=== PATIENT | male | born 1990 | race African-American/Black ===

== ENCOUNTER 2016-12-08 19:57 | Inpatient (IN) | payer OTHER ==
[~2016-12-08] VITALS: Ht 165.1 cm; Wt 57.7 kg
[2016-12-08 20:01] VITALS: BP 144/71; PULSE 83; RESP 14; TEMP 98.6; O2SAT 99
[2016-12-08 22:41] VITALS: BP 133/70; PULSE 78; RESP 14; O2SAT 97
[2016-12-08 23:38] LABS: AMPHETAMINE, URINE NEG (NEG); BARBITURATES, URINE NEG (NEG); COCAINE, URINE NEG (NEG)
[2016-12-08 23:40] LABS: AUTOMATED NEUTROPHIL # 2.1 TH/MM3 (1.8-7.7); BASOPHIL # 0.1 TH/MM3 (0-0.2); BASOPHIL % 2.1 % (0.0-2.0); EOSINOPHIL # 0.3 TH/MM3 (0-0.4); EOSINOPHIL % 5.7 % (0.0-4.0); HEMATOCRIT 39.7 % (39.0-51.0); HEMO FLAGS DIFF FINAL; LYMPH % 44.8 % (9.0-44.0); LYMPHOCYTE # 2.5 TH/MM3 (1.0-4.8); MEAN CELL VOLUME 87.4 FL (80.0-100.0); MEAN CORPUSCULAR HEMOGLOBIN 30.5 PG (27.0-34.0); MEAN CORPUSCULAR HGB CONC 34.9 % (32.0-36.0); NEUT % 36.4 % (16.0-70.0); PLATELET COUNT 297 TH/MM3 (150-450); RED BLOOD COUNT 4.55 MIL/MM3 (4.50-5.90); RED CELL DISTRIBUTION WIDTH 13.5 % (11.6-17.2); WHITE BLOOD COUNT 5.6 TH/MM3 (4.0-11.0)
[2016-12-09 00:02] LABS: ALT (GPT) 22 U/L (12-78); ANION GAP 6 MEQ/L (5-15); AST (GOT) 27 U/L (15-37); BICARBONATE 28.2 MEQ/L (21.0-32.0); BLOOD UREA NITROGEN 15 MG/DL (7-18); CHLORIDE 105 MEQ/L (98-107); GLOMERULAR FILTRATION RATE 105 ML/MIN (>89); POTASSIUM 4.1 MEQ/L (3.5-5.1); SODIUM (NA) 139 MEQ/L (136-145)
[2016-12-09 00:08] LABS: ALKALINE PHOSPHATASE 86 U/L (45-117); TOTAL BILIRUBIN ADULT 0.4 MG/DL (0.2-1.0)
--- NOTE | 2016-12-09 00:15 | PD ---
HPI Chief Complaint: Medical Clearance Time Seen by Provider: 22:13 Travel History International Travel<30 days: No Contact w/Intl Traveler<30days: No Traveled to known affect area: No History of Present Illness HPI 26 years old male requesting medical clearance for [facility]. Patient requesting psychiatric evaluation. Patient states that he has psychiatric history however unable to tell me the diagnosis is. Patient denies any headache. Patient denies any chest pain or shortness of breath. Patient denies abdominal pain. Patient denies any focal weakness or numbness of extremity. Patient denies any history alcohol or drug abuse. Patient states that has history of asthma. PFSH Past Medical History Depression: Yes (Denies diagnosis) Hypertension: Yes Respiratory: Yes (ASTHMA) Past Surgical History Surgical History: No Previous Surgery Social History Alcohol Use: No Tobacco Use: No Substance Use: No Allergies-Medications (Allergen,Severity, Reaction): Coded Allergies: No Known Allergies (Unverified , 12/08/16) Reported Meds & Prescriptions Reported Meds & Active Scripts Active No Active Prescriptions or Reported Medications Review of Systems General / Constitutional: No: Fever Eyes: No: Visual changes HENT: No: Headaches Cardiovascular: No: Chest Pain or Discomfort Respiratory: No: Shortness of Breath Gastrointestinal: No: Abdominal Pain Genitourinary: No: Dysuria Musculoskeletal: No: Pain Skin: No Rash Neurologic: No: Weakness Psychiatric: No: Depression Endocrine: No: Polydipsia Hematologic/Lymphatic: No: Easy Bruising Physical Exam Narrative GENERAL: Well-nourished, well-developed patient. SKIN: Focused skin assessment warm/dry. HEAD: Normocephalic. EYES: No scleral icterus. No injection or drainage. NECK: Supple, trachea midline. No JVD or lymphadenopathy. CARDIOVASCULAR: Regular rate and rhythm without murmurs, gallops, or rubs. RESPIRATORY: Breath sounds equal bilaterally. No accessory muscle use. GASTROINTESTINAL: Abdomen soft, non-tender, nondistended. MUSCULOSKELETAL: No cyanosis, or edema. BACK: Nontender without obvious deformity. No CVA tenderness. Neurologic exam normal. Data Data Last Documented VS Vital Signs Date Time Temp Pulse Resp B/P Pulse Ox O2 Delivery O2 Flow Rate FiO2 12/08/16 22:41 78 14 133/70 97 12/08/16 20:01 98.6 Room Air Orders Complete Blood Count With Diff (12/08/16 22:18) Comprehensive Metabolic Panel (12/08/16 22:18) Psych Screen (12/08/16 22:18) Drug Screen, Random Urine (12/08/16 22:18) Alcohol (Ethanol) (12/08/16 22:18) Labs Laboratory Tests Test 12/08/16 22:00 White Blood Count 5.6 TH/MM3 Red Blood Count 4.55 MIL/MM3 Hemoglobin 13.9 GM/DL Hematocrit 39.7 % Mean Corpuscular Volume 87.4 FL Mean Corpuscular Hemoglobin 30.5 PG Mean Corpuscular Hemoglobin 34.9 % Concent Red Cell Distribution Width 13.5 % Platelet Count 297 TH/MM3 Mean Platelet Volume 8.3 FL Neutrophils (%) (Auto) 36.4 % Lymphocytes (%) (Auto) 44.8 % Monocytes (%) (Auto) 11.0 % Eosinophils (%) (Auto) 5.7 % Basophils (%) (Auto) 2.1 % Neutrophils # (Auto) 2.1 TH/MM3 Lymphocytes # (Auto) 2.5 TH/MM3 Monocytes # (Auto) 0.6 TH/MM3 Eosinophils # (Auto) 0.3 TH/MM3 Basophils # (Auto) 0.1 TH/MM3 CBC Comment DIFF FINAL Differential Comment Urine Opiates Screen NEG Urine Barbiturates Screen NEG Urine Amphetamines Screen NEG Urine Benzodiazepines Screen NEG Urine Cocaine Screen NEG Urine Cannabinoids Screen NEG Sodium Level 139 MEQ/L Potassium Level 4.1 MEQ/L Chloride Level 105 MEQ/L Carbon Dioxide Level 28.2 MEQ/L Anion Gap 6 MEQ/L Blood Urea Nitrogen 15 MG/DL Creatinine 1.04 MG/DL Estimat Glomerular Filtration 105 ML/MIN Rate Random Glucose 72 MG/DL Calcium Level 9.0 MG/DL Total Bilirubin 0.4 MG/DL Aspartate Amino Transf 27 U/L (AST/SGOT) Alanine Aminotransferase 22 U/L (ALT/SGPT) Alkaline Phosphatase 86 U/L Total Protein 7.6 GM/DL Albumin 3.9 GM/DL Ethyl Alcohol Level 7 MG/DL [facility] Medical Decision Making Medical Screen Exam Complete: Yes Emergency Medical Condition: Yes Interpretation(s) 12:15 AM. CBC within normal limit. CMP within normal limit. Alcohol negative. Urine drug screen negative. Differential Diagnosis Differential diagnosis including adjustment disorder, substance abuse, psychosis , schizophrenia. Narrative Course 26 years old male requesting psychiatric evaluation. 12:15 AM. Patient is medically cleared for psychiatric evaluation and disposition. Scripts No Active Prescriptions or Reported Meds Talha Devine MD Dec 09, 2016 00:15
[2016-12-09 10:27] VITALS: BP 114/60; PULSE 60; RESP 14; O2SAT 98
[2016-12-09] MEDS ORDERED: LORazepam 2 MG/ML VIAL IM PRN (15:00)
[2016-12-09] MEDS ORDERED: ALUMINUM/MAGNESIUM/SIMETH 30 ML CUP PO PRN (15:00)
[2016-12-09] MEDS ORDERED: ACETAMINOPHEN 325 MG TAB PO PRN (15:00)
[2016-12-09] MEDS ORDERED: diphenhydrAMINE HCL 50 MG/ML VIAL IM PRN (15:00)
[2016-12-09] MEDS ORDERED: MAGNESIUM HYDROXIDE SUSP 30 ML CUP PO PRN (15:00)
[2016-12-09] MEDS ORDERED: OLANZapine ODT 5 MG TAB PO ONE (15:00)
[2016-12-09] MEDS ORDERED: diphenhydrAMINE HCL 50 MG CAP PO PRN (15:00)
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
[2016-12-09 15:28] VITALS: BP 122/59; PULSE 61; RESP 18; TEMP 99.1; O2SAT 98
[2016-12-09 17:10] VITALS: BP 131/80; PULSE 64; RESP 17; TEMP 98.3; O2SAT 99
[2016-12-10 02:25] VITALS: BP 109/64; PULSE 46; RESP 18; TEMP 98; O2SAT 99
[2016-12-10 05:04] VITALS: BP 99/58; PULSE 49; RESP 18; TEMP 97.8; O2SAT 97
[2016-12-10 05:30] VITALS: BP 104/60; PULSE 50; RESP 18
--- NOTE | 2016-12-10 09:40 | EKG ---
Date Performed: 12/10/2016 Time Performed: 02:12:01 PTAGE: 26 years EKG: ECTOPIC ATRIAL BRADYCARDIA ST ELEVATION, PROBABLY EARLY REPOLARIZATION ABNORMAL RHYTHM ECG NO PREVIOUS TRACING DOCTOR: Freedom Bright Interpretating Date/Time 12/10/2016 09:39:16
[2016-12-10 10:26] LABS: ANION GAP 5 MEQ/L (5-15); BICARBONATE 29.8 MEQ/L (21.0-32.0); BLOOD UREA NITROGEN 12 MG/DL (7-18); CHLORIDE 106 MEQ/L (98-107); GLOMERULAR FILTRATION RATE 93 ML/MIN (>89); HDL CHOLESTEROL 53.8 MG/DL (40.0-60.0); LDL CHOLESTEROL 84 MG/DL (0-99); POTASSIUM 3.7 MEQ/L (3.5-5.1); SODIUM (NA) 141 MEQ/L (136-145)
[2016-12-10 11:53] LABS: HEMOGLOBIN A1b 0.8 %; HEMOGLOBIN Ao 85.8 %; HEMOGLOBIN LA1C 1.7 %; HEMOGLOBIN P3 3.5 %
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
[2016-12-10 19:18] VITALS: BP 122/71; PULSE 65; RESP 16; TEMP 97.8; O2SAT 100
[2016-12-10] MEDS: ARIPiprazole 5 MG TAB PO SCH (20:22)
[2016-12-11 05:39] VITALS: BP 111/61; PULSE 75; RESP 17; TEMP 97.6; O2SAT 100
[2016-12-11 18:23] VITALS: BP 122/80; PULSE 73; RESP 18; TEMP 98.4; O2SAT 98
--- NOTE | 2016-12-11 21:04 | HHI.PYPN ---
Subjective Remarks Pt seen and discussed with staff. He is compliant wiht medication and tolerating without side effects. He reports seeing shadows and balls of light. He appears internally stimulated. No SI/HI. No agitation. Objective Alert: Yes [place]: Person, Place Mood: Calm Affect: Restricted Memory Intact: Immediate, Recent, Remote Hallucinations: Visual, Other (internally stimulation) Delusions: Yes Delusion Type: Paranoid Suicidal: Ideation (denies) Homicidal: Ideation (denies) Insight/Judgment poor Vitals/IOs Vital Signs Date Time Temp Pulse Resp B/P Pulse Ox O2 Delivery O2 Flow Rate FiO2 12/11/16 18:23 98.4 73 18 122/80 98 12/09/16 15:28 Room Air Assessment & Plan Problem List: (1) Schizophrenia, paranoid, chronic ICD Code: F20.0 Assessment & Plan Continue current tx plan. Estimated LOS: days Justification for Cont. Inpt. impairments in reality construction Elise Gao MD Dec 11, 2016 21:04
[2016-12-11] MEDS: ARIPiprazole 5 MG TAB PO SCH (21:24)
[2016-12-12 05:38] VITALS: BP 104/64; PULSE 61; RESP 16; TEMP 98.2; O2SAT 98
[2016-12-12] MEDS: ARIPiprazole 5 MG TAB PO SCH (21:00)
--- NOTE | 2016-12-12 22:36 | HHI.PYPN ---
Subjective Remarks Pt seen and discussed with staff. He is tolerating medications without side effects. Hallucinations are diminishing. No agitation. He is more present in milieu but is still isolative and guarded. Prominent negative symptoms. Objective Alert: Yes [place]: Person, Place Mood: Calm Affect: Restricted Memory Intact: Immediate, Recent, Remote Hallucinations: Visual, Other (internally stimulation) Delusions: Yes Delusion Type: Paranoid Suicidal: Ideation (denies) Homicidal: Ideation (denies) Insight/Judgment limited Vitals/IOs Vital Signs Date Time Temp Pulse Resp B/P Pulse Ox O2 Delivery O2 Flow Rate FiO2 12/12/16 05:38 98.2 61 16 104/64 98 12/09/16 15:28 Room Air Assessment & Plan Problem List: (1) Schizophrenia, paranoid, chronic ICD Code: F20.0 Assessment & Plan Continue current tx plan. Estimated LOS: days Justification for Cont. Inpt. impairments in reality construction Elise Gao MD Dec 12, 2016 22:36
[2016-12-13 05:53] VITALS: BP 108/57; PULSE 67; RESP 18; TEMP 98.4; O2SAT 98
[2016-12-13 20:25] VITALS: BP 114/81; PULSE 77; RESP 18; TEMP 98.1; O2SAT 98
[2016-12-13] MEDS: traZODone HCL 50 MG TAB PO PRN (21:23)
[2016-12-13] MEDS: ARIPiprazole 5 MG TAB PO SCH (21:23)
[2016-12-14 06:41] VITALS: BP 110/56; PULSE 61; RESP 18; TEMP 98.1; O2SAT 97
--- NOTE | 2016-12-14 10:55 | HHI.PYPN ---
Subjective Remarks This is a psychiatric progress note for December 13, 2016. Patient remains flat and blunted in his affect and interactions. He demonstrates impaired ability to relate to others. However, he is tolerating the Abilify. It continues to need time to work as the patient remains paranoid with auditory hallucinations. Review of Systems ROS Limitations: Clinical Condition Objective Alert: Yes [place]: Person, Place Mood: Calm Affect: Restricted Memory Intact: Immediate, Recent, Remote Hallucinations: Visual, Other (internally stimulation) Delusions: Yes Delusion Type: Paranoid Suicidal: Ideation (denies) Homicidal: Ideation (denies) Insight/Judgment Impaired. Vitals/IOs Vital Signs Date Time Temp Pulse Resp B/P Pulse Ox O2 Delivery O2 Flow Rate FiO2 12/14/16 06:41 98.1 61 18 110/56 97 Assessment & Plan Problem List: (1) Schizophrenia, paranoid, chronic ICD Code: F20.0 Assessment & Plan Estimated LOS: 3 days this physician wants to give the patient more time on his Abilify and make sure he has reasonable follow up as he has limited or no family support at this point. Justification for Cont. Inpt. Patient continues to report auditory hallucinations, paranoid thinking and an inability to care for self. Esteban Blake MD Dec 14, 2016 10:55
[2016-12-14 19:00] VITALS: BP 128/63; PULSE 67; RESP 18; TEMP 98.4; O2SAT 97
[2016-12-14] MEDS: traZODone HCL 50 MG TAB PO PRN (21:31)
[2016-12-14] MEDS: ARIPiprazole 5 MG TAB PO SCH (21:31)
[2016-12-15 06:27] VITALS: BP 126/66; PULSE 78; RESP 18; TEMP 97.9; O2SAT 96
--- NOTE | 2016-12-15 09:56 | HHI.PYPN ---
Subjective Remarks Remains psychotic with paranoid delusions. Does not feel he can go home to his parents because they are imposters. Has very limited insight and impaired judgment. He is currently taking his medicines as prescribed. However he remains confused and unable to care for himself. Review of Systems ROS Limitations: Clinical Condition Objective Alert: Yes [place]: Person, Place Mood: Calm Affect: Restricted Memory Intact: Immediate, Recent, Remote Hallucinations: Visual, Other (internally stimulation) Delusions: Yes Delusion Type: Paranoid Suicidal: Ideation (denies) Homicidal: Ideation (denies) Insight/Judgment Impaired Vitals/IOs Vital Signs Date Time Temp Pulse Resp B/P Pulse Ox O2 Delivery O2 Flow Rate FiO2 12/15/16 06:27 97.9 78 18 126/66 96 Assessment & Plan Problem List: (1) Schizophrenia, paranoid, chronic ICD Code: F20.0 Assessment & Plan Estimated LOS: 3 days patient continues to demonstrate paranoid ideation and paranoid delusions. He is confused and requires prompting for hygiene, meals, getting dressed, etc. He is taking direction better and this physician hopes that with more time on his medication, he will continue to improve. We will discuss placement options with him and his family. Justification for Cont. Inpt. Remains psychotic and unable to care for self. Esteban Blake MD Dec 15, 2016 09:56
[2016-12-15 18:04] VITALS: BP 133/64; PULSE 97; RESP 20; TEMP 98.2; O2SAT 96
[2016-12-15] MEDS: ARIPiprazole 5 MG TAB PO SCH (20:32)
[2016-12-15] MEDS: traZODone HCL 50 MG TAB PO PRN (20:32)
[2016-12-16 06:09] VITALS: BP 116/67; PULSE 74; RESP 18; TEMP 98.1; O2SAT 96
--- NOTE | 2016-12-16 15:34 | HHI.PYPN ---
Subjective Remarks Remains paranoid with significantly blunted affect but otherwise cooperative with staff and does not appear to be dangerous to self or others. Tolerating his dose of Abilify rather well. No significant side effects. Review of Systems ROS Limitations: Clinical Condition Objective Alert: Yes [place]: Person, Place Mood: Calm Affect: Restricted Memory Intact: Immediate, Recent, Remote Hallucinations: Visual, Other (internally stimulation) Delusions: Yes Delusion Type: Paranoid Suicidal: Ideation (denies) Homicidal: Ideation (denies) Insight/Judgment Impaired but improved Vitals/IOs Vital Signs Date Time Temp Pulse Resp B/P Pulse Ox O2 Delivery O2 Flow Rate FiO2 12/16/16 06:09 98.1 74 18 116/67 96 Assessment & Plan Problem List: (1) Schizophrenia, paranoid, chronic ICD Code: F20.0 Assessment & Plan Estimated LOS: 3 days have asked psychiatric social worker supervisor to contact family regarding long -acting injectable Abilify use. Patient likely be ready for discharge by Tuesday. We'll continue his Abilify for now. Justification for Cont. Inpt. Still paranoid and waiting for Abilify 2 stabilize patient further. Esteban Blake MD Dec 16, 2016 15:34
[2016-12-16] MEDS: traZODone HCL 50 MG TAB PO PRN (20:21)
[2016-12-16] MEDS: ARIPiprazole 5 MG TAB PO SCH (20:21)
[2016-12-17 06:05] VITALS: BP 98/54; PULSE 72; RESP 16; TEMP 98.3; O2SAT 100
--- NOTE | 2016-12-17 15:41 | HHI.PYPN ---
Subjective Remarks Patient continues to demonstrate paranoid delusions about being controlled by others. Otherwise he is calm and cooperative. He remains unable to care for himself. Review of Systems ROS Limitations: Clinical Condition Objective Alert: Yes [place]: Person, Place Mood: Calm Affect: Restricted Memory Intact: Immediate, Recent, Remote Hallucinations: Visual, Other (internally stimulation) Delusions: Yes Delusion Type: Paranoid Suicidal: Ideation (denies) Homicidal: Ideation (denies) Insight/Judgment Impaired. Vitals/IOs Vital Signs Date Time Temp Pulse Resp B/P Pulse Ox O2 Delivery O2 Flow Rate FiO2 12/17/16 06:05 98.3 72 16 98/54 100 Assessment & Plan Problem List: (1) Schizophrenia, paranoid, chronic ICD Code: F20.0 Assessment & Plan Estimated LOS: 4 days plan to continue current medicines and offer Abilify Maintena. Justification for Cont. Inpt. Likely to decompensate if discharged to lesser level of care. Esteban Blake MD Dec 17, 2016 15:41
[2016-12-17 18:00] VITALS: BP 121/69; PULSE 78; RESP 18; TEMP 98.6
[2016-12-17] MEDS: ARIPiprazole 5 MG TAB PO SCH (20:41)
[2016-12-18 06:42] VITALS: BP 119/56; PULSE 70; RESP 16; TEMP 98.8; O2SAT 99
--- NOTE | 2016-12-18 14:34 | HHI.PYPN ---
Subjective Remarks Patient was seen and case discussed with nursing. Patient is pleasant and cooperative with exam. He remains with negative symptoms with a flat affect, seclusion to self and some apathy. Continues to think that is controlled by others "to some degree." Alert and oriented 3. Denies suicidal ideation intent or plan Objective Alert: Yes [place]: Person, Place, Date Mood: Calm Affect: Flat Memory Intact: Immediate, Recent, Remote Hallucinations: Other (internally stimulation) Delusions: Yes Delusion Type: Paranoid (that others are controlling him) Suicidal: Ideation (denies) Homicidal: Ideation (denies) Insight/Judgment Poor Vitals/IOs Vital Signs Date Time Temp Pulse Resp B/P Pulse Ox O2 Delivery O2 Flow Rate FiO2 12/18/16 06:42 98.8 70 16 119/56 99 Assessment & Plan Problem List: (1) Schizophrenia, paranoid, chronic ICD Code: F20.0 Assessment & Plan Continue current treatment plan Justification for Cont. Inpt. Patient will decompensate in a less restrictive setting Saul Williamson DO Dec 18, 2016 14:34
[2016-12-18 18:00] VITALS: BP 118/74; PULSE 63; RESP 16; TEMP 98.2; O2SAT 100
[2016-12-18] MEDS: ARIPiprazole 5 MG TAB PO SCH (21:08)
[2016-12-18] MEDS: traZODone HCL 50 MG TAB PO PRN (21:08)
[2016-12-19 05:15] VITALS: BP 96/55; PULSE 58; RESP 16; TEMP 97.3
[2016-12-19 05:20] VITALS: BP 123/76; PULSE 65; RESP 16; TEMP 98; O2SAT 98
--- NOTE | 2016-12-19 13:07 | HHI.PYPN ---
Subjective Remarks Patient was seen and case discussed with nursing. Patient remains seclusive and suspicious per nursing. Largely spends the day in his room. Has not had any visitors or phone calls. Says that they are reading a book, murder mystery. His compliant with medications. He appears flat and anxious. Continues to deny positive symptoms Objective Alert: Yes [place]: Person, Place, Date Mood: Calm Affect: Flat Memory Intact: Remote (not tested) Hallucinations: Other (internally stimulation) Delusions: Yes Delusion Type: Paranoid (none elicited today) Suicidal: Ideation (denies) Homicidal: Ideation (denies) Insight/Judgment Poor Vitals/IOs Vital Signs Date Time Temp Pulse Resp B/P Pulse Ox O2 Delivery O2 Flow Rate FiO2 12/19/16 05:20 98.0 65 16 123/76 98 Assessment & Plan Problem List: (1) Schizophrenia, paranoid, chronic ICD Code: F20.0 Assessment & Plan Continue current treatment plan Justification for Cont. Inpt. Patient will decompensate in a less restrictive setting Saul Williamson DO Dec 19, 2016 13:07
[2016-12-19 19:16] VITALS: BP 117/66; PULSE 72; RESP 18; TEMP 98.3; O2SAT 99
[2016-12-19] MEDS: ARIPiprazole 5 MG TAB PO SCH (21:00)
[2016-12-19] MEDS: traZODone HCL 50 MG TAB PO PRN (22:30)
[2016-12-20 05:05] VITALS: BP 112/65; PULSE 67; RESP 17; TEMP 97.8; O2SAT 98
--- NOTE | 2016-12-20 17:42 | HHI.PYPN ---
Subjective Remarks Little change. Remains paranoid. Withdrawn and blunted affect. Calm and cooperative. Review of Systems ROS Limitations: Clinical Condition Objective Alert: Yes [place]: Person, Place, Date Mood: Calm Affect: Flat Memory Intact: Remote (not tested) Hallucinations: Other (internally stimulation) Delusions: Yes Delusion Type: Paranoid (none elicited today) Suicidal: Ideation (denies) Homicidal: Ideation (denies) Insight/Judgment Impaired Vitals/IOs Vital Signs Date Time Temp Pulse Resp B/P Pulse Ox O2 Delivery O2 Flow Rate FiO2 12/20/16 05:05 97.8 67 17 112/65 98 Assessment & Plan Problem List: (1) Schizophrenia, paranoid, chronic ICD Code: F20.0 Assessment & Plan Estimated LOS: 1-2 days continue Abilify. Justification for Cont. Inpt. Will decompensate at lower level of care. Esteban Blake MD Dec 20, 2016 17:41
[2016-12-20 18:00] VITALS: BP 129/60; PULSE 75; RESP 18; TEMP 98.9; O2SAT 96
[2016-12-20] MEDS: ARIPiprazole 5 MG TAB PO SCH (20:34)
[2016-12-20] MEDS: traZODone HCL 50 MG TAB PO PRN (20:34)
[2016-12-21 06:18] VITALS: BP 122/64; PULSE 58; RESP 18; TEMP 97.8; O2SAT 99
--- NOTE | 2016-12-21 10:22 | HHI.PYPN ---
Subjective Remarks Remains paranoid but is calm and cooperative. He has a blunted affect. He is unable to provide himself with housing. We will have the patient case coordinator call his family regarding the possibility of taking him back. Review of Systems ROS Limitations: Clinical Condition Objective Alert: Yes [place]: Person, Place, Date Mood: Calm Affect: Flat Memory Intact: Remote (not tested) Hallucinations: Other (internally stimulation) Delusions: Yes Delusion Type: Paranoid (none elicited today) Suicidal: Ideation (denies) Homicidal: Ideation (denies) Insight/Judgment Impaired Vitals/IOs Vital Signs Date Time Temp Pulse Resp B/P Pulse Ox O2 Delivery O2 Flow Rate FiO2 12/21/16 06:18 97.8 58 18 122/64 99 Assessment & Plan Problem List: (1) Schizophrenia, paranoid, chronic ICD Code: F20.0 Assessment & Plan Estimated LOS: 2 days days continues to need time to stabilize on Abilify. Candidate for long-acting injectable Abilify. Justification for Cont. Inpt. Will decompensate without this level of care. Esteban Blake MD Dec 21, 2016 10:22
[2016-12-21 20:00] VITALS: BP 121/57; PULSE 69; RESP 16; TEMP 98.9
[2016-12-21] MEDS: ARIPiprazole 5 MG TAB PO SCH (20:23)
[2016-12-21] MEDS: traZODone HCL 50 MG TAB PO PRN (20:23)
[2016-12-22 06:02] VITALS: BP 135/66; PULSE 69; RESP 18; TEMP 97.7; O2SAT 97
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
[2016-12-22] MEDS ORDERED: ARIP1TAB11 PO (14:42)
[2016-12-22] MEDS ORDERED: ARIP1TAB5 PO (14:44)
== END 2016-12-22 17:25 | disposition home or self-care (01) | DRG 885 ==
LOC: NEPD 19:57 → NEDA 12-09 14:56 → H260 12-09 16:11
PROVIDERS: ADMIT Psychiatry & Neurology Psychiatry; ATTEND Psychiatry & Neurology Psychiatry
DX: F20.0 Paranoid schizophrenia (principal); Z91.14 Patient's other noncompliance with medication regimen; J45.909 Unspecified asthma, uncomplicated; Z59.0 Homelessness
CPT/HCPCS: 80048; 80053; 80061; 80307; 83036; 85025; 93005; 99284; Q0163

== ENCOUNTER 2016-12-30 12:28 | Emergency (ER) | payer OTHER ==
[~2016-12-30] VITALS: Ht 165.1 cm; Wt 58.0 kg
[~2016-12-30 12:28] MED LIST: ARIP1TAB11 PO; ARIP1TAB5 PO
[2016-12-30 12:29] VITALS: BP 156/89; PULSE 87; RESP 15; TEMP 98.2; O2SAT 99
--- NOTE | 2016-12-30 12:43 | PD ---
Physical Exam Date Seen by Provider: December 30, 2016 Time Seen by Provider: 12:39 Narrative Pt is a 26 year old male, presenting to the ED to speak with someone about his sadness and sore ankle. Pt states he has been feeling sad for a few days off and on. He reports his ankle has been sore for a few days as well. Pt was running a week ago when he injured himself. Pain is a 5-6/10, and sore. He is ambulatory. Pt reports new stressors related to his family. VSS, awaiting bed placement. Data Data Last Documented VS Vital Signs Date Time Temp Pulse Resp B/P Pulse Ox O2 Delivery O2 Flow Rate FiO2 12/30/16 12:29 98.2 87 15 156/89 99 MDM Supervised Visit with MARGI: No Condition: Stable Tena Miranda December 30, 2016 12:42
--- NOTE | 2016-12-30 13:05 | PD ---
HPI Chief Complaint: Psychiatric Symptoms Time Seen by Provider: 12:55 Travel History International Travel<30 days: No Contact w/Intl Traveler<30days: No Traveled to known affect area: No History of Present Illness HPI 26-year-old male history of paranoid schizophrenia presents voluntarily requesting psychiatric evaluation. He reports increasing depression, paranoia, as well as difficulties with homelessness. The patient was admitted here on December 09 for psychiatric evaluation, discharged on December 22. Reportedly he was discharged to [facility] but he reports that they rejected him and he has been splitting time between [place] and sleeping in various arcs over the past week. He reports feeling increasingly depressed because of this. He denies any suicidal or homicidal ideation. He denies any drug or alcohol use. He is prescribed Abilify which he reports he has been using occasionally. With regards to physical problems, he is complaining of some right ankle pain for the past few days. He describes it as a soreness in the anterior right ankle which is worse when walking. He denies any specific trauma, he reports that symptoms started when he was running from the [facility] to [facility]. According to her recent hospital records, the patient's mother and father will not allow the patient to live with them. No other complaints. PFSH Past Medical History Depression: Yes (Denies diagnosis) Hypertension: Yes Respiratory: Yes (ASTHMA) Social History Alcohol Use: No Tobacco Use: No Substance Use: No Allergies-Medications (Allergen,Severity, Reaction): Coded Allergies: No Known Allergies (Unverified , 12/30/16) Reported Meds & Prescriptions Reported Meds & Active Scripts Active No Active Prescriptions or Reported Medications Review of Systems Except as stated in HPI: all other systems reviewed are Neg Physical Exam Narrative GENERAL: Pleasant well developed well-nourished male in no acute distress answering questions properly. SKIN: Warm and dry. HEAD: Atraumatic. Normocephalic. EYES: Pupils equal and round. No scleral icterus. No injection or drainage. ENT: No nasal bleeding or discharge. Mucous membranes pink and moist. NECK: Trachea midline. No JVD. CARDIOVASCULAR: Regular rate and rhythm. No murmur appreciated. RESPIRATORY: No accessory muscle use. Clear to auscultation. Breath sounds equal bilaterally. GASTROINTESTINAL: Abdomen soft, non-tender, nondistended. Hepatic and splenic margins not palpable. MUSCULOSKELETAL: No obvious deformities. There is pain with dorsiflexion of the right ankle. The pain is localized to the anterior right ankle. There is no bruising or soft tissue swelling. No range of motion limitation. Calf is nontender. Achilles tendon is intact. 2 posterior cells pedis and posterior tibial pulses. NEUROLOGICAL: Awake and alert. No obvious cranial nerve deficits. Motor grossly within normal limits. Normal speech. PSYCHIATRIC: Appropriate mood and affect Data Data Last Documented VS Vital Signs Date Time Temp Pulse Resp B/P Pulse Ox O2 Delivery O2 Flow Rate FiO2 12/30/16 12:29 98.2 87 15 156/89 99 Orders Complete Blood Count With Diff (12/30/16 12:53) Comprehensive Metabolic Panel (12/30/16 12:53) Psych Screen (12/30/16 12:53) Drug Screen, Random Urine (12/30/16 12:53) Alcohol (Ethanol) (12/30/16 12:53) Ankle, Limited (Ap&Lat) (12/30/16 ) Labs Laboratory Tests Test 12/30/16 14:08 White Blood Count 6.7 TH/MM3 Red Blood Count 4.86 MIL/MM3 Hemoglobin 14.7 GM/DL Hematocrit 43.3 % Mean Corpuscular Volume 89.1 FL Mean Corpuscular Hemoglobin 30.2 PG Mean Corpuscular Hemoglobin 33.8 % Concent Red Cell Distribution Width 14.0 % Platelet Count 298 TH/MM3 Mean Platelet Volume 7.7 FL Neutrophils (%) (Auto) 54.9 % Lymphocytes (%) (Auto) 31.0 % Monocytes (%) (Auto) 10.8 % Eosinophils (%) (Auto) 1.7 % Basophils (%) (Auto) 1.6 % Neutrophils # (Auto) 3.7 TH/MM3 Lymphocytes # (Auto) 2.1 TH/MM3 Monocytes # (Auto) 0.7 TH/MM3 Eosinophils # (Auto) 0.1 TH/MM3 Basophils # (Auto) 0.1 TH/MM3 CBC Comment DIFF FINAL Differential Comment Sodium Level 139 MEQ/L Potassium Level 3.6 MEQ/L Chloride Level 102 MEQ/L Carbon Dioxide Level 30.1 MEQ/L Anion Gap 7 MEQ/L Blood Urea Nitrogen 14 MG/DL Creatinine 1.21 MG/DL Estimat Glomerular Filtration 88 ML/MIN Rate Random Glucose 76 MG/DL Calcium Level 9.1 MG/DL Total Bilirubin 0.7 MG/DL Aspartate Amino Transf 25 U/L (AST/SGOT) Alanine Aminotransferase 18 U/L (ALT/SGPT) Alkaline Phosphatase 87 U/L Total Protein 8.1 GM/DL Albumin 4.3 GM/DL Ethyl Alcohol Level LESS THAN 3 MG/DL MDM Medical Decision Making Medical Screen Exam Complete: Yes Emergency Medical Condition: Yes Medical Record Reviewed: Yes Differential Diagnosis Homelessness, malingering, medication noncompliance, schizophrenia, adjustment reaction Narrative Course 26-year-old male with history of schizophrenia presents after being discharged psychiatrically one week ago. Since then he has been homeless, feeling increasingly depressed and is requesting psychiatric evaluation. He is complaining of right ankle pain which started when he was running. Mental health screening discussed with the patient. Psychiatric screen ordered. This patient is medically cleared for psychiatric disposition. Diagnosis Primary Impression: Schizophrenia, paranoid, chronic Additional Impressions: Homelessness Right ankle strain Qualified Code: S96.911A - Right ankle strain, initial encounter Scripts No Active Prescriptions or Reported Meds Condition: Stable [place] Parikh December 30, 2016 13:05
--- NOTE | 2016-12-30 13:45 | RADRPT ---
EXAM DATE/TIME: 12/30/2016 13:00 [facility] COMPARISON: No previous studies available for comparison. INDICATIONS : Right ankle pain, injured walking MEDICAL HISTORY : None. SURGICAL HISTORY : None. ENCOUNTER: Initial ACUITY: 1 day PAIN SCORE: 6/10 LOCATION: Right Ankle FINDINGS: Two view examination was performed of the right ankle. The bony structures are in normal alignment. No evidence of fracture, dislocation, or soft tissue swelling. No radiopaque foreign bodies are see n. Bony mineralization is normal. CONCLUSION: Radiographic appearance of the right ankle is within normal limits. Jeovanny Dhillon MD on December 30, 2016 at 13:42 Board Certified Radiologist. This report was verified electronically.
[2016-12-30 14:18] LABS: AUTOMATED NEUTROPHIL # 3.7 TH/MM3 (1.8-7.7); BASOPHIL # 0.1 TH/MM3 (0-0.2); BASOPHIL % 1.6 % (0.0-2.0); EOSINOPHIL # 0.1 TH/MM3 (0-0.4); EOSINOPHIL % 1.7 % (0.0-4.0); HEMATOCRIT 43.3 % (39.0-51.0); HEMO FLAGS DIFF FINAL; LYMPHOCYTE # 2.1 TH/MM3 (1.0-4.8); MEAN CELL VOLUME 89.1 FL (80.0-100.0); MEAN CORPUSCULAR HEMOGLOBIN 30.2 PG (27.0-34.0); MEAN CORPUSCULAR HGB CONC 33.8 % (32.0-36.0); MONO % 10.8 % (0.0-8.0); NEUT % 54.9 % (16.0-70.0); PLATELET COUNT 298 TH/MM3 (150-450); RED BLOOD COUNT 4.86 MIL/MM3 (4.50-5.90); WHITE BLOOD COUNT 6.7 TH/MM3 (4.0-11.0)
[2016-12-30 14:36] LABS: ANION GAP 7 MEQ/L (5-15); AST (GOT) 25 U/L (15-37); BICARBONATE 30.1 MEQ/L (21.0-32.0); BLOOD UREA NITROGEN 14 MG/DL (7-18); CHLORIDE 102 MEQ/L (98-107); GLOMERULAR FILTRATION RATE 88 ML/MIN (>89); POTASSIUM 3.6 MEQ/L (3.5-5.1); SODIUM (NA) 139 MEQ/L (136-145)
[2016-12-30 14:39] LABS: ALKALINE PHOSPHATASE 87 U/L (45-117); ALT (GPT) 18 U/L (12-78); TOTAL BILIRUBIN ADULT 0.7 MG/DL (0.2-1.0)
[2016-12-30 15:33] LABS: AMPHETAMINE, URINE NEG (NEG); BARBITURATES, URINE NEG (NEG); COCAINE, URINE NEG (NEG)
[2016-12-30 16:21] VITALS: BP 136/78; PULSE 66; RESP 18; TEMP 98.3; O2SAT 99
== END 2016-12-30 17:33 | disposition home or self-care (01) ==
LOC: NEPD 12:28 → NEPJ 17:33
DX: F20.0 Paranoid schizophrenia (principal); S96.911A Strain of unspecified muscle and tendon at ankle and foot level, right foot, initial encounter; X58.XXXA Exposure to other specified factors, initial encounter; Y93.02 Activity, running
CPT/HCPCS: 73600; 80053; 80307; 85025; 99283

== ENCOUNTER 2017-01-17 19:42 | Emergency (ER) | payer SELFPAY ==
[~2017-01-17] VITALS: Ht 165.1 cm; Wt 58.0 kg
[2017-01-17 19:47] VITALS: BP 135/86; PULSE 109; RESP 16; TEMP 98.1; O2SAT 98
--- NOTE | 2017-01-17 19:50 | PD ---
HPI Chief Complaint: Cold / Flu Symptoms Time Seen by Provider: 19:50 Travel History International Travel<30 days: No Contact w/Intl Traveler<30days: No Traveled to known affect area: No PFSH Past Medical History Depression: Yes Diminished Hearing: No Hypertension: Yes Respiratory: Yes (ASTHMA) Schizophrenia: Yes Social History Alcohol Use: No Tobacco Use: No Substance Use: No Allergies-Medications (Allergen,Severity, Reaction): Coded Allergies: No Known Allergies (Unverified , 01/17/17) Reported Meds & Prescriptions Reported Meds & Active Scripts Active No Active Prescriptions or Reported Medications Data Data Last Documented VS Vital Signs Date Time Temp Pulse Resp B/P Pulse Ox O2 Delivery O2 Flow Rate FiO2 01/17/17 19:47 98.1 109 16 135/86 98 Room Air MDM Scripts No Active Prescriptions or Reported Meds Cherie Gaona January 17, 2017 19:50
--- NOTE | 2017-01-17 19:56 | PD ---
HPI Chief Complaint: Cold / Flu Symptoms Time Seen by Provider: 19:56 Travel History International Travel<30 days: No Contact w/Intl Traveler<30days: No Traveled to known affect area: No PFSH Past Medical History Depression: Yes Diminished Hearing: No Hypertension: Yes Respiratory: Yes (ASTHMA) Schizophrenia: Yes Social History Alcohol Use: No Tobacco Use: No Substance Use: No Allergies-Medications (Allergen,Severity, Reaction): Coded Allergies: No Known Allergies (Unverified , 01/17/17) Reported Meds & Prescriptions Reported Meds & Active Scripts Active No Active Prescriptions or Reported Medications Data Data Last Documented VS Vital Signs Date Time Temp Pulse Resp B/P Pulse Ox O2 Delivery O2 Flow Rate FiO2 01/17/17 19:47 98.1 109 16 135/86 98 Room Air MDM Medical Decision Making Medical Screen Exam Complete: Yes Emergency Medical Condition: Yes Medical Record Reviewed: Yes Scripts No Active Prescriptions or Reported Meds Condition: Stable Cherie Gaona January 17, 2017 19:56
--- NOTE | 2017-01-18 04:19 | PD ---
HPI Chief Complaint: Cold / Flu Symptoms Time Seen by Provider: 04:17 Travel History International Travel<30 days: No Contact w/Intl Traveler<30days: No Traveled to known affect area: No History of Present Illness HPI 26-year-old male presents to emergency department for evaluation of sore throat. Patient states this has been present for the last 2 days. He also feels as though he has sinus congestion. Denies fever or chills. Denies chest pain or tightness. Has no other symptoms to report. History Past Medical Histgory Medical History: Denies Significant Hx Social History Alcohol Use: No Tobacco Use: No Allergies-Medications (Allergen,Severity, Reaction): Coded Allergies: No Known Allergies (Unverified , 01/17/17) Reported Meds & Prescriptions Reported Meds & Active Scripts Active No Active Prescriptions or Reported Medications Review of Systems Except as stated in HPI: all other systems reviewed are Neg Physical Exam Narrative GENERAL: Well-nourished, well-developed male patient in no acute distress SKIN: Focused skin assessment warm/dry. HEAD: Normocephalic. EYES: No scleral icterus. No injection or drainage. ENT: Mucosa pink and moist. No erythema or exudates. No uvular edema. No uvular , palatal, or tonsillar deviation. Airway patent. Nasal turbinates appear normal without nasal blood, purulent drainage or septal hematoma. NECK: Supple, trachea midline. No JVD or lymphadenopathy. CARDIOVASCULAR: Regular rate and rhythm without murmurs, gallops, or rubs. RESPIRATORY: Breath sounds equal bilaterally. No accessory muscle use. GASTROINTESTINAL: Abdomen soft, non-tender, nondistended. MUSCULOSKELETAL: No cyanosis, or edema. BACK: Nontender without obvious deformity. No CVA tenderness. Data Data Last Documented VS Vital Signs Date Time Temp Pulse Resp B/P Pulse Ox O2 Delivery O2 Flow Rate FiO2 01/17/17 19:47 98.1 109 16 135/86 98 Room Air MDM Medical Screen Exam Complete: Yes Emergency Medical Condition: No Differential Diagnosis Pharyngitis, viral versus strep versus allergies versus normal exam Narrative Course 26 year male presents to emergency department for evaluation of sore throat. Patient appears without distress. His throat appears clear. Nasal turbinates do not appear inflamed. Patient's exam is relatively benign. I have encouraged [id number] symptom management. At this time there are no urgent or emergent needs for medical intervention identify A medical screening exam was performed: At the time of evaluation the presenting medical condition was determined not to be of an emergent nature. The patient was given the option of receiving additional care, but declined. Patient was given options for additional community resources from which to obtain care. The Patient Has Been advised to seek medical attention for their presenting complaint. The patient has been advised to return to the ER at any time if an emergent condition develops. Primary Impression: Sore throat (viral) Additional Impressions: Sinus congestion Encounter for medical screening examination Scripts No Active Prescriptions or Reported Meds Disposition: 07 EDGO-ED USE ONLY Condition: Stable Cherie Gaona January 18, 2017 04:19
== END 2017-01-17 20:04 | disposition left against medical advice (07) ==
LOC: NEPK 19:42
DX: J02.9 Acute pharyngitis, unspecified (principal)
CPT/HCPCS: 99281